=== PATIENT | female | born 1960 | race Caucasian/White ===

== ENCOUNTER 2023-01-17 08:00 | Outpatient (RCR) | payer BC, SELFPAY ==
--- NOTE | 2022-12-25 17:01 | OPREHPOC ---
Outpatient Therapy Plan of Care This is a Multidisciplinary Plan of Care that may contain components documented by all disciplines (PT, OT, and ST.) PT Problem 1 PT Problem #1 Knowledge Deficit PT Goal 1 Goal Independent with HEP Target Visit 8 PT Problem 2 PT Problem #2 Impaired Gait PT Goal 1 Goal able to walk without assistive device Target Visit 8 PT Problem 3 PT Problem #3 Impaired Vestibular Syste PT Goal 1 Goal Patient to report no dizziness for 1 week or dizziness that is cured by Shelli or Doherty Daroff exercises. Target Visit 8 PT Problem 4 PT Problem #4 Impaired Strength PT Goal 1 Goal Patient able to do saccades, smooth pursuit, and VOR without blurriness or increased dizziness. Target Visit 8
--- NOTE | 2022-12-25 17:02 | PTOPEVAL1 ---
Assessment and note entered by Juan Brand, PT Evaluation Information Assessment Status Evaluation Diagnosis B.P.P.V. Onset about 10 weeks ago Subjective Information Patient reports having dizziness since a trip to [facility] the [facility] about 10 weeks ago. She developed a feeling a fullness and ringing in her R ear while swimming. Patient has since then reported no being dizzy with it going from severe the world is spinning and her feeling nausea to just feeling unsteady on her feet. Currently is walking while holding onto furniture or the mayo (needs to hold onto therapist to walk back to the gym from the waiting room). Patient has an audiology appointment at the end of Jan and is also experiencing blurry vision (has not been to the eye doctor in over a year.) Reported Pain Level Pain Score 0: Self Report Assessment PT Clinical Summary Montserrat is a 62 year old female coming into the clinic with a diagnosis of B.P.P.V. She has poor ocular motor control and positive L [place] decreased functional mobility secondary to the dizziness. Physical therapy attempted 2 Shelli's maneuvers to clear the inner ear. Patient given HEP and told to stop prior exercises given by her sister. Physical therapy will continue to monitor and work on habituation exercises, balance, and clearing techniques if needed. Also recommended eye appointment. Plan of Care Interventions Gait Training,Hot Pack/Cold Pack,Manual Therapy, Neuro Re-education,Patient/Caregiver Education, Therapeutic Activities,Therapeutic Exercise, Ultrasound Other Interventions cupping, taping, IASTM PT Services Indicated Yes Treatment Frequency and 2x/wk for 8 visits Duration These treatments will address the objective and functional deficits as defined above. The patient will be advanced safely and appropriately in order for the patient to progress towards his/her prior level of function. Additional exercises will be introduced and as well as a comprehensive home exercise program upon discharge, if needed, ?to ensure carryover of functional gains achieved in the clinic. This treatment plan has been reviewed and agreement upon by the patient.
--- NOTE | 2022-12-27 11:41 | PCPTNOTE ---
during today's treatment session, pt report she will not be able to attend therapy next week, due to not having a ride; she is not driving due to dizziness.
--- NOTE | 2023-01-17 08:42 | PTOPDC ---
Assessment and note entered by Ivonne Merino, PT Evaluation Information Assessment Status Discharge Diagnosis B.P.P.V. Onset about 10 weeks ago Subjective Information Montserrat reports: feels about the same; head is still light headed and head spinning, dizzy; it is constant and sometimes worse--when bend forward ; some nasal congestion from allergies and sinus; R ear is like ringing, ocean- like sound, swishing noise almost all the time there, with less hearing in R ear, feels like clogged; still wobbly with walking and cannot go very far; Had eyes checked and said they were OK, but her vision is blurry, cannot focus on items, sometimes floaty things, like clouds; Have appointment for mobile heavy equipment mechanic soon; General is trying to get her into a neurologist. Is very frustrated with the dizziness and not being able to do things; ACTIVITY: due to dizziness: is not driving, with problems as a passenger; walking and activity limited due to balance; cannot go out to family events/watching grand kids' games; usually walk without anything, but at night and if having a bad day--use the walker; Reported Pain Level Pain Score 0: Self Report Assessment PT Clinical Summary Montserrat has received 6 PT sessions for vestibular therapy. Vestibular testing: standing: eye tracking R/L with head stable at 6 reps & up/ down 5 reps-- increase dizziness reported; gaze stabilization with head motions R/L and up/ down at 6 reps increase dizziness reported; activity: increase dizziness with: sit>stand, bending to reach floor, 360' turn to R and L x1 rep gait: forward walking with slow pace, guarded with reaching to rail in hallway; Compared to the initial evaluation: she continues to have issues with dizziness and vestibular s/s that have not changed--constant symptoms that increase at times. Education has been completed for general vestibular education,
== END 2023-01-17 14:30 | disposition home or self-care (01) ==
LOC: ANHPT 08:00
PROVIDERS: PCP Family Medicine; Visit Provider Otolaryngology
DX: H81.11 Benign paroxysmal vertigo, right ear (principal); H91.20 Sudden idiopathic hearing loss, unspecified ear
CPT/HCPCS: 97110; 97112; 97140; 97161; 97530

== ENCOUNTER → 2023-01-27 10:41 | Outpatient (CLI) | payer BC, SELFPAY ==
--- NOTE | ~2023-01-27 | CT_ITS ---
EXAMINATION: CTA brain DATE: 01/27/2023 11:21 INDICATION: Right-sided pulsatile tinnitus. TECHNIQUE: Computed tomographic angiography (CTA) of the head was performed without and with 100 mL O mnipaque-350 intravenous contrast. Automated exposure control and iterative reconstruction technique were employed. The dose-length product was 1183.55 mGy-cm. Maximum intensity projection 3D reconstru ctions were created. Volume-rendered 3D reconstructions of the intracranial arteries were created by the technologist on a separate workstation. COMPARISON: Brain MRI 02/12/2010 FINDINGS: There is no intracranial hemorrhage, acute infarction, or abnormal intracranial mass lesion . The ventricles are normal in size. The mastoid air cells are normal. There is mild mucosal thickeni ng in the ethmoid sinuses. The orbits are normal. Left vertebral artery is dominant. Basilar artery i s fenestrated. There is no significant stenosis of the posterior cerebral arteries. There is mild nicholas que in the proximal internal carotid arteries with 0% stenosis relative to normal distal artery lumen diameters. There is no significant stenosis of the anterior middle cerebral arteries. Anterior commu nicating artery is normal. Right posterior communicating artery is normal. A left posterior communica ting artery is not identified. There is no aneurysm. The jugular bulbs are normal. IMPRESSION: 1. Normal brain. No aneurysm or significant intracranial arterial stenosis. Reviewed, dictated and finalized at location E.
[2023-01-27 10:59] LABS: Estimated Glomerular Filt Rate > 60
== END ==
PROVIDERS: PCP Physician Assistant Medical; Visit Provider Otolaryngology
DX: H93.A1 Pulsatile tinnitus, right ear (principal); H81.09 Meniere's disease, unspecified ear; H81.4 Vertigo of central origin
CPT/HCPCS: 70496; Q9967

== ENCOUNTER 2023-02-04 09:20 | Outpatient (CLI) | payer BC, SELFPAY | END 2023-02-04 09:21 | disposition home or self-care (01) | LOC: ANHAUDIO 09:20 | PROVIDERS: PCP Physician Assistant Medical; Visit Provider Otolaryngology | DX: H81.11 Benign paroxysmal vertigo, right ear (principal); H90.3 Sensorineural hearing loss, bilateral | CPT/HCPCS: 92557; 92567 ==

== ENCOUNTER → 2023-12-23 11:44 | Outpatient (REF) | payer MEDICARE, OTHER, SELFPAY | LOC: ANHLAB 11:44 | PROVIDERS: PCP Family Medicine; Visit Provider Plastic Surgery | DX: L72.0 Epidermal cyst (principal) | CPT/HCPCS: 88304; 88305 ==

== ENCOUNTER 2024-09-08 08:30 | Outpatient (RCR) | payer MEDICARE, OTHER, SELFPAY ==
--- NOTE | 2024-06-10 10:07 | OPREHPOC ---
Outpatient Therapy Plan of Care This is a Multidisciplinary Plan of Care that may contain components documented by all disciplines (PT, OT, and ST.) PT Problem 1 PT Problem #1 Knowledge Deficit PT Goal 1 Goal / Goal Update *indep with HEP Target Visit 10 PT Problem 2 PT Problem #2 Pain PT Goal 1 Goal / Goal Update * pt report decreased cervical pain rating to 3/10 at worst Target Visit 10 PT Problem 3 PT Problem #3 Impaired Flexibility PT Goal 1 Goal / Goal Update increase cervical ROM to improve mobility, self care and home activities: active cervical ROM: 1* rotation R 60' 2* rotation L 60' 3* flexion without reports of tight Target Visit 10 PT Problem 4 PT Problem #4 Impaired Vestibular System PT Goal 1 Goal / Goal Update improve vestibular system, pt able to perform 10 reps, in sitting, without an increase in symptoms: 1* eye tracking R/L 2* eye tracking up/down 3* convergence of eyes Target Visit 10 PT Problem 5 PT Problem #5 Impaired Balance PT Goal 1 Goal / Goal Update improve balance with improved vestibular system and safety: 1* 5 reps sit/stand time of 18 seconds and NO loss of balance 2* pt report NO falls 3* pt walk 150' with straight path, no veer R/L Target Visit 10
--- NOTE | 2024-06-10 10:07 | PTOPEVAL1 ---
Assessment and note entered by Ivonne Merino, PT Evaluation Information Assessment Status Evaluation ICD-10 Condition Codes (PT) Dizziness and Giddiness R42 Other ICD-10 Condition Codes ( [id number] postural perceptual dizziness; PT) central vertigo H81.4 Onset October 2022 Subjective Information have gone to [facility] for dizziness assessment: new meds for YEAST PUSHER- verapamil and inner ear-betahistine; diagnosis of persistent postural perceptual dizziness, was told it would never go away, may get 20-30% better; continue to take meclazine and nausea med have had PT here in the past--continuing to do the HEP: eye tracking R/L and convergence; balance activities in standing; in the past 6 months, have fallen 6x-dizzy and body just collapses;have not fallen since new meds symptoms: feel like head is foggy, out of it; things are swaying--all of the time; some nausea; fullness & pressure in R ear; in the past week, do not have any dizziness/ spinning -- decreased since started above new meds increase symptoms: head down, turn head to R or L activity: live with at home; light home tasks, is not driving Reported Pain Level Pain Score Self Report-neck pain Additional Pain Score Comments pain range in the past week 1-11/18 had x ray and MRI of neck--per pt: narrowing of blood vessels in head had recent stent R carotid surgery/stent discussed use of heat PRN for neck Assessment PT Clinical Summary Montserrat has the diagnosis of Persistent postural perceptual dizziness. She has been to the [facility] and has new meds that are decreasing her symptoms. Her Dizziness Handicap index self rating is 74% limitation in activity level. Her activity is limited to light in home and self care tasks. She is not driving and is doing most of the home tasks. Her medical history includes: recent R carotid artery surgery/stent, neck pain, post COVID syndrome, hypoglycemia, diverticulitis, increased anxiety, falls due to dizziness. With the evaluation: her symptoms increase with cervical flexion, rotation to R and L; decreased eye convergence testing; decreased cervical ROM and pain increase with neck motions. 5 reps sit/ stand time of 22 seconds with 2 loss of balance. Skilled PT services are indicated for vestibular rehab for habituation exercises, balance retraining. Treatment to include cervical treatment for neck pain, spasms and decreased ROM. Plan of Care Interventions Electrical Stimulation,Hot Pack/Cold Pack,Manual Therapy,Neuro Re-education,Patient/Caregiver Education,Therapeutic Activities,Therapeutic Exercise,Ultrasound,Other Other Interventions taping PT Services Indicated Yes Treatment Frequency and 1-2x/wk for 10 visits Duration These treatments will address the objective and functional deficits as defined above. The patient will be advanced safely and appropriately in order for the patient to progress towards his/her prior level of function. Additional exercises will be introduced and as well as a comprehensive home exercise program upon discharge, if needed, ?to ensure carryover of functional gains achieved in the clinic. This treatment plan has been reviewed and agreement upon by the patient.
--- NOTE | 2024-07-05 10:05 | OPREHPOC ---
Outpatient Therapy Plan of Care This is a Multidisciplinary Plan of Care that may contain components documented by all disciplines (PT, OT, and ST.) PT Problem 1 PT Problem #1 Knowledge Deficit PT Goal 1 Goal / Goal Update *indep with HEP 07-05-24 progress goal met, continue to progress HEP and education Target Visit 18 PT Problem 2 PT Problem #2 Pain PT Goal 1 Goal / Goal Update * pt report decreased cervical pain rating to 3/10 at worst 07-05-24 progress goal not met, worst rating of 9/10; NEW GOAL: * cervical pain rating of 5/10 at worst Target Visit 18 PT Problem 3 PT Problem #3 Impaired Flexibility PT Goal 1 Goal / Goal Update increase cervical ROM to improve mobility, self care and home activities: active cervical ROM: 1* rotation R 60' 2* rotation L 60' 3* flexion without reports of tight 07-05-24 progress goal2 1,2 met continue towards goal 3 Target Visit 18 PT Problem 4 PT Problem #4 Impaired Vestibular System PT Goal 1 Goal / Goal Update improve vestibular system, pt able to perform 10 reps, in sitting, without an increase in symptoms: 1* eye tracking R/L 2* eye tracking up/down 3* convergence of eyes 07-05-24 progress goals met NEW GOALS: 1* pt pick item up off floor 1x, recovery time of 5 seconds 2* 360' turn to R x1, recovery time of 15 seconds 3* 360' turn to L x1, recovery time of 10 seconds 4* standing, convergence of eyes, 5 reps with good motion of eyes Target Visit 18 PT Problem 5 PT Problem #5 Impaired Balance PT Goal 1 Goal / Goal Update improve balance with improved vestibular system and safety: 1* 5 reps sit/stand time of 18 seconds and NO loss of balance 2* pt report NO falls 3* pt walk 150' with straight path, no veer R/L 07-05-24 progress goals 2,3 met; #1 partially met, met NO loss of balance NEW GOALS: 1* 5 reps sit/stand time of 20 seconds 2* report performing vacuuming at home x 10 minutes Target Visit 18
--- NOTE | 2024-07-05 10:05 | PTOPPROG ---
Assessment and note entered by Ivonne Merino, PT Evaluation Information Assessment Status Progress ICD-10 Condition Codes (PT) Dizziness and Giddiness R42 Other ICD-10 Condition Codes ( H81.3B1pxuzoincxc postural perceptual dizziness; PT) central vertigo H81.4 Onset October 2022 Subjective Information doing better- no longer have the going to throw up feelings; have been doing the exercises at home and doing deep breathing to help feel better; have driven 2x- nervous since it has been 2 years since driving; walking better, not hold onto mayo; have not had any falls; taking the medications and feel like they are helping; cannot be out in a crowd of people; at home-- is doing laundry with use of gripper to reach into machine and dishes with sitting on a bar stool; unable to vacuum or dust mop symptoms: head foggy, head full of jello/wobbly, cannot focus eyes-- all of the time, not really change; PAIN: range in the past week: 0-9/10; both sides of neck, into R and L upper traps and mid humerus; awaken 2-3 x/night with neck pain; using heat on neck, shoulders and back; been doing neck stretches. Assessment PT Clinical Summary Montserrat has received 8 PT sessions. Compared to the initial evaluation: increase cervical rotation ROM to R and L, but continues to have symptoms with head motions; improved reps with eye tracking R/L and up/down before increase in symptoms; increased- has slight convergence of eyes, L more movement than R eye; 5 reps sit/ stand time is few seconds more, but did not have loss of balance with sit/stand; Continues to have neck pain and sleep is disrupted due to neck pain, awaken 2-3 x/night due to neck pain. Dizziness Handicap index self rating improved from 74 to 66% limitation in activity level. She has driven a few times, short distance and doing more light home tasks. Continues to report: anxious, foggy headed, wobbly feeling of head, cannot be in crowds with lots of noise. And frustration over this going on for 2 years now. The goals were partially met. Continue PT treatment--cervical pain control, vestibular rehab-cognitive, habituation and dynamic balance, with education for HEP and activity progression. Plan of Care Interventions Electrical Stimulation,Hot Pack/Cold Pack,Manual Therapy,Neuro Re-education,Patient/Caregiver Education,Therapeutic Activities,Therapeutic Exercise,Ultrasound,Other Other Interventions taping PT Services Indicated Yes Treatment Frequency and 1-2x/wk for 10 visits Duration These treatments will address the objective and functional deficits as defined above. The patient will be advanced safely and appropriately in order for the patient to progress towards his/her prior level of function. Additional exercises will be introduced and as well as a comprehensive home exercise program upon discharge, if needed, ?to ensure carryover of functional gains achieved in the clinic. This treatment plan has been reviewed and agreement upon by the patient.
--- NOTE | 2024-07-12 11:55 | PCPTNOTE ---
pt called and canceled appt due to not feeling well.
--- NOTE | 2024-07-19 11:53 | PCPTNOTE ---
Pt NS visit today. Called and
--- NOTE | 2024-07-26 09:59 | PCPTNOTE ---
Pt no showed visit today, left message with next visit day time.
== END 2024-09-08 23:59 | disposition home or self-care (01) ==
LOC: ANHPT 08:30
PROVIDERS: PCP Family Medicine
DX: H81.8X9 Other disorders of vestibular function, unspecified ear (principal); H81.4 Vertigo of central origin
CPT/HCPCS: 97110; 97112; 97140; 97162; 97530

== ENCOUNTER 2024-09-14 11:00 | Outpatient (RCR) | payer MEDICARE, OTHER, SELFPAY ==
--- NOTE | 2024-09-10 11:24 | PCPTNOTE ---
Continuing care from [id number].
--- NOTE | 2024-09-14 13:07 | OPREHPOC ---
Outpatient Therapy Plan of Care This is a Multidisciplinary Plan of Care that may contain components documented by all disciplines (PT, OT, and ST.) PT Problem 1 PT Problem #1 Knowledge Deficit PT Goal 1 Goal / Goal Update *indep with HEP 07-05-24 progress goal met, continue to progress HEP and education 09-14-24 d/c goal met Target Visit 18 Progress Met PT Problem 2 PT Problem #2 Pain PT Goal 1 Goal / Goal Update * pt report decreased cervical pain rating to 3/10 at worst 07-05-24 progress goal not met, worst rating of 9/10; NEW GOAL: * cervical pain rating of 5/10 at worst 09-14-24 d/c goal met Target Visit 18 Progress Met PT Problem 3 PT Problem #3 Impaired Flexibility PT Goal 1 Goal / Goal Update increase cervical ROM to improve mobility, self care and home activities: active cervical ROM: 1* rotation R 60' 2* rotation L 60' 3* flexion without reports of tight 07-05-24 progress goal2 1,2 met continue towards goal 3 09-14-24 d/c goal 2 & 3 met Target Visit 18 Progress Partially Met PT Problem 4 PT Problem #4 Impaired Vestibular System PT Goal 1 Goal / Goal Update improve vestibular system, pt able to perform 10 reps, in sitting, without an increase in symptoms: 1* eye tracking R/L 2* eye tracking up/down 3* convergence of eyes 07-05-24 progress goals met NEW GOALS: 1* pt pick item up off floor 1x, recovery time of 5 seconds 2* 360' turn to R x1, recovery time of 15 seconds 3* 360' turn to L x1, recovery time of 10 seconds 4* standing, convergence of eyes, 5 reps with good motion of eyes 09-14-24 d/c goals not met: #1- 20 seconds; #2-18; #3-14; #4- met for R eye Target Visit 18 Progress Not Met PT Problem 5 PT Problem #5 Impaired Balance PT Goal 1 Goal / Goal Update improve balance with improved vestibular system and safety: 1* 5 reps sit/stand time of 18 seconds and NO loss of balance 2* pt report NO falls 3* pt walk 150' with straight path, no veer R/L 07-05-24 progress goals 2,3 met; #1 partially met, met NO loss of balance NEW GOALS: 1* 5 reps sit/stand time of 20 seconds 2* report performing vacuuming at home x 10 minutes 09-14-24 d/c goal 2 met Target Visit 18 Progress Partially Met
--- NOTE | 2024-09-14 13:07 | PTOPDC ---
Assessment and note entered by Ivonne Merino, PT Assessment Status Discharge ICD-10 Condition Codes (PT) Dizziness and Giddiness R42 Other ICD-10 Condition Codes ( H81.3I5vejznypqul postural perceptual dizziness; PT) central vertigo H81.4; neck pain Onset October 2022 Subjective Information therapy has helped, feel about 50% improved; no longer vomiting; walking better- not leaning or reaching for mayo for balance; doing the exercises at home; no fall since last one in June; the medicine is helping; still have the anxiety- meds not really help that much for it ; R ear feels funny- itching, burning and now have spots on my ear. symptoms: brain fog, woozie headed, cannot focus, nauseated, hard to concentrate, eyes not focus/ blurry increase: bending down, leaning over, quick head motions; watch TV about 1 hour activity; doing all self care and light home tasks - except leaning over; driving short distances only - to dr and therapy appts; walk with ~ 10-15 minutes for exercise; walking in store, that was not very crowded for shopping ~ 10 minutes; able to vacuum 5-10 minutes with light weight vacuum; is taking allergy medicine every day, some of the head feelings are worse when allergies flare up; activity- NOT able to do: go out in public where there are crowds, all the people moving around her make her nauseated, head spins; not able to read- words go together Reported Pain Level Pain Score Self Report Additional Pain Score Comments pain range in the past week: 0-6/10; tight, spasms of neck Assessment PT Clinical Summary Montserrat has received a total of 17 PT sessions. See subjective section for her comments about her vestibular symptoms and activity tolerance. Vestibular testing/activity: - standing and pick item up off floor, increase dizziness & decreased standing balance, dizziness eases 20 seconds -sit/stand 5 reps in 28 seconds with increase symptoms, loss of balance and leaning thighs on the chair seat for support - 360' x 1 to R, symptoms ease in 18 seconds and to L ease in 14 seconds - standing eye convergence: good on R eye, L eye decreased motion- does not stay medial- jumps back lateral Compared to the last reassessment: she has made minimal improvements with reported activity tolerance and recovery time with above activities. Cervical pain has decreased. Education completed for home exercises and pt has good safety awareness-- has not had any falls. The goals were partially met. Discharge PT services. Plan of Care PT Services Indicated No
== END 2024-12-07 11:30 | disposition home or self-care (01) ==
LOC: ANHPT 11:00
PROVIDERS: PCP Family Medicine
DX: H81.8X9 Other disorders of vestibular function, unspecified ear (principal); H81.4 Vertigo of central origin
CPT/HCPCS: 97110; 97112; 97530

== ENCOUNTER 2024-10-08 09:46 | Outpatient (CLI) | payer MEDICARE, OTHER, SELFPAY ==
--- NOTE | ~2024-10-08 | XR_ITS ---
Left foot Technique: AP, oblique, and lateral views were obtained. Clinical History: Syncope and collapse Findings: There is acute, oblique, mildly displaced and comminuted fracture of the distal fourth meta tarsal shaft.. Joint spaces are preserved without erosive or degenerative change. Soft tissues are un remarkable. Impression: Acute fracture of the fourth metatarsal shaft, as detailed above. Reviewed, dictated and finalized at location . Impression: Acute fracture of the fourth metatarsal shaft, as detailed above.
--- NOTE | ~2024-10-08 | XR_ITS ---
XR hip LT 2V w AP pelvis 10/08/2024 10:29 Indication: Hip pain. Syncope. Procedure: AP pelvis 2 views left hip Comparison: No prior studies for comparison. Findings: Pelvic rings are intact. Osteopenia. Mild osteoarthritis of the hips. No fracture or trauma tic malalignment. Sacral foramen are symmetric. Impression: 1: Mild bilateral symmetric osteoarthritis of the hips. Reviewed, dictated and finalized at location A. Impression: 1: Mild bilateral symmetric osteoarthritis of the hips.
--- NOTE | ~2024-10-08 | XR_ITS ---
3 VIEWS LUMBAR SPINE Ordering provider: Minesh Bruno NP History: . R55 - Syncope and collapse . Comparison: None. FINDINGS: VERTEBRAL BODIES: Spondylolisthesis at the level of L5-S1. Spondylolysis at the same level is seen. DISK SPACES: Degenerative disc disease at the level of L5-S1. SOFT TISSUES: Atherosclerotic changes of the aorta. IMPRESSION: No acute osseous abnormality lumbar spine. Spondylolisthesis with spondylolysis at the level of L5-S1. Degenerative disc disease at the level of L5-S1. Reviewed, dictated and finalized at location A.
== END 2024-10-08 09:47 | disposition home or self-care (01) ==
LOC: MICIMG 09:49
PROVIDERS: PCP Family Medicine
DX: M16.0 Bilateral primary osteoarthritis of hip (principal); S92.345A Nondisplaced fracture of fourth metatarsal bone, left foot, initial encounter for closed fracture; X58.XXXA Exposure to other specified factors, initial encounter; M43.17 Spondylolisthesis, lumbosacral region; M47.816 Spondylosis without myelopathy or radiculopathy, lumbar region; M51.379 Other intervertebral disc degeneration, lumbosacral region without mention of lumbar back pain or lower extremity pain; R29.6 Repeated falls; R55 Syncope and collapse; Z98.890 Other specified postprocedural states
CPT/HCPCS: 72110; 73502; 73630

== ENCOUNTER 2024-10-21 08:02 | Outpatient (CLI) | payer MEDICARE, OTHER, SELFPAY ==
--- NOTE | ~2024-10-21 | MR_ITS ---
MRI of the lumbar spine Clinical History: Radiculopathy Technique: Axial T2-weighted images, and sagittal T1-weighted, T2-weighted, and and T2 fat-sat images were acquired. Findings: There is 12 mm anterolisthesis of L5 over S1 with probable partial fusion across the L5-S1 disc space which is otherwise severely narrowed. There is extensive marrow edema in the left sacrum, suspicious for sacral insufficiency fracture, partially imaged. At L1-L2, there is no disc bulge or herniation. No spinal canal stenosis or neural foraminal narrowin g. At L2-L3, there is minimal disc bulge with moderate facet arthropathy. No central canal stenosis or n eural foraminal narrowing. At L3-L4, there is no disc bulge or herniation. No spinal canal stenosis or neural foraminal narrowin g. At L4-L5, there is minimal disc bulge with mild facet arthropathy. No central canal stenosis. There i s mild to moderate left neural foraminal narrowing. Right neural foramen preserved. At L5-S1, there is disc bulge/uncovering. No spinal canal stenosis. There is severe bilateral neural foraminal compress. Paravertebral soft tissues are unremarkable. Impression: Findings consistent with sacral insufficiency fracture of the left sacrum, partially imaged. 12 mm anterolisthesis of L5 over S1 with partial fusion across the L5-S1 disc space and severe bilate ral neural foraminal narrowing at this level. Mild degenerative spondylosis in the remainder of the lumbar spine otherwise, as detailed above. Reviewed, dictated and finalized at [facility]. Impression: Findings consistent with sacral insufficiency fracture of the left sacrum, part ially imaged. 12 mm anterolisthesis of L5 over S1 with partial fusion across the L5-S1 disc s pace and severe bilateral neural foraminal narrowing at this level. Mild degenerative spondylosis in the remainder of the lumbar spine otherwise, a s detailed above.
--- NOTE | ~2024-10-21 | MR_ITS ---
MRI of the SI joints CLINICAL HISTORY: Pain TECHNIQUE: Sagittal proton-density fat-sat images, coronal T1-weighted, T2-weighted, and T2 fat-sat i mages, and axial T1-weighted and T2 fat-sat images were acquired. FINDINGS: There is extensive marrow edema of the left sacrum, extending into the central sacrum proba khadijah at the S2 and S3 levels, with more mild edema at the inferior right sacral alae. There is subtle hypointense linear areas within the regions. Findings are compatible bilateral sacral insufficiency f ractures extending across the midline. SI joints are intact. No significant degenerative change. No evidence for erosive arthropathy or effu gwyn of the SI joints. Visual is musculature is unremarkable. No soft tissue mass or fluid collection seen. Impression: Bilateral sacral insufficiency fractures extending across the midline, left worse than right. Reviewed, dictated and finalized at [facility]. Impression: Bilateral sacral insufficiency fractures extending across the midline, left wor se than right.
== END 2024-10-21 08:03 | disposition home or self-care (01) ==
LOC: GOSHIMG 08:02
PROVIDERS: PCP Family Medicine
DX: M53.3 Sacrococcygeal disorders, not elsewhere classified (principal); R29.6 Repeated falls; R55 Syncope and collapse; M47.26 Other spondylosis with radiculopathy, lumbar region
CPT/HCPCS: 72148; 72195